=== PATIENT | female | born 1995 | race Caucasian/White ===

== ENCOUNTER 2017-07-27 14:31 | Outpatient (CLI) | payer OTHER | END 2017-07-27 17:14 | disposition home or self-care (01) | LOC: OBT 14:31 → L-D 14:31 → OBT 17:14 | DX: O62.9 Abnormality of forces of labor, unspecified (principal); Z3A.37 37 weeks gestation of pregnancy; O26.893 Other specified pregnancy related conditions, third trimester; R06.02 Shortness of breath | CPT/HCPCS: 76818 ==

== ENCOUNTER 2017-07-28 16:01 | Outpatient (CLI) | payer OTHER | END 2017-07-28 19:43 | disposition home or self-care (01) | LOC: OBT 16:01 → L-D 16:03 → OBT 19:43 | DX: O41.03X0 Oligohydramnios, third trimester, not applicable or unspecified (principal); Z3A.37 37 weeks gestation of pregnancy | CPT/HCPCS: 76815; 76818 ==

== ENCOUNTER 2017-07-30 14:40 | Outpatient (CLI) | payer OTHER | END 2017-07-30 16:00 | disposition home or self-care (01) | LOC: OBT 14:40 → L-D 14:41 → OBT 16:00 | DX: O41.03X0 Oligohydramnios, third trimester, not applicable or unspecified (principal); Z3A.38 38 weeks gestation of pregnancy | CPT/HCPCS: 76818 ==

== ENCOUNTER 2017-08-02 02:22 | Inpatient (IN) | payer OTHER ==
[2017-08-02] MEDS ORDERED: OXYTOCIN 30 UNITS/LR 500 ML IV ×2 (05:00)
[2017-08-02] MEDS ORDERED: OXYCODONE/ASPIRIN (4.88/325) TAB PO (05:00)
[2017-08-02] MEDS ORDERED: IBUPROFEN 600 MG TAB PO (05:00)
[2017-08-02] MEDS ORDERED: METHYLERGONOVINE 0.2 MG INJ IM (05:00)
[2017-08-02] MEDS ORDERED: MISOPROSTOL 200 MCG TAB PR (05:00)
[2017-08-02] MEDS ORDERED: BUTORPHANOL 2 MG INJ IV (05:00)
[2017-08-02] MEDS ORDERED: CARBOPROST 250 MCG INJ IM (05:00)
[2017-08-02] MEDS ORDERED: LIDOCAINE 1% (MPF) 30 ML INJ INJ (05:00)
[2017-08-02] MEDS ORDERED: ALBUTEROL HFA 8 GM INHALER INH (05:30)
[2017-08-02 05:31] LABS: ADD MAN DIFF? NO
[2017-08-02 05:43] LABS: ABNORMAL IP MESSAGE 1; BASOPHILS % 0.3 % (0.0-2.0); EOSINOPHILS # 0.2 10^3/ul (0.0-0.5); EOSINOPHILS % 1.5 % (0.0-7.0); HEMATOCRIT 37.1 % (37.0-47.0); HEMOGLOBIN 12.3 g/dl (12.0-16.0); LYMPHOCYTES # 1.7 10^3/ul (0.8-2.9); LYMPHOCYTES % 15.7 % (15.0-51.0); MEAN CORPUSCULAR HEMOGLOBIN 28.7 pg (29.0-33.0); MEAN CORPUSCULAR HGB CONC 33.2 g/dl (32.0-37.0); MEAN CORPUSCULAR VOLUME 86.7 fl (82.0-101.0); MEAN PLATELET VOLUME 13.1 fl (7.4-10.4); MONOCYTE # 0.6 10^3/ul (0.3-0.9); MONOCYTES % 5.5 % (0.0-11.0); NEUTROPHIL # 8.4 10^3/ul (1.6-7.5); NEUTROPHILS % 76.5 % (39.0-77.0); PLATELET COUNT 176 10^3/UL (140-415); RED BLOOD COUNT 4.28 10^6/ul (4.20-5.40); RED CELL DISTRIBUTION WIDTH 14.1 % (11.5-14.5)
[2017-08-02 05:57] LABS: POSITIVE DIFF @See below
[2017-08-02 06:03] LABS: INR 0.93; PROTIME 12.5 Sec (11.9-14.9)
[2017-08-02 06:04] LABS: PARTIAL THROMBOPLASTIN TIME 26.2 Sec (25.0-35.0)
[2017-08-02 06:29] LABS: AMPHETAMINE/METHAMPHETAMINE Negative (NEGATIVE); BARBITURATES Negative (NEGATIVE); BENZODIAZEPINES Negative (NEGATIVE); CANNABINOIDS Positive (NEGATIVE); COCAINE Negative (NEGATIVE); OPIATES Negative (NEGATIVE)
[2017-08-02] MEDS: LACTATED RINGER'S 1,000 ML IV ×4 (06:38→19:33)
[2017-08-02 07:56] LABS: RUPTURE FETAL MEMBRANES NEGATIVE (NEGATIVE)
[2017-08-02] MEDS: OXYTOCIN 30 UNITS/LR 500 ML IV (11:19)
[2017-08-02 15:26] LABS: RAPID PLASMA REAGIN NONREACTIVE (NR)
[2017-08-02] MEDS ORDERED: FENTAnyl 2MCG/ML-ROPIV 0.2% 100 ML (16:30)
[2017-08-02] MEDS ORDERED: DIPHENHYDRAMINE 50 MG INJ IV (22:30)
[2017-08-02] MEDS ORDERED: NALOXONE (0.4 MG/ML) INJ IV (22:30)
[2017-08-02] MEDS ORDERED: ONDANSETRON 4 MG INJ IV (22:30)
[2017-08-02] MEDS: FENTAnyl 2MCG/ML-ROPIV 0.2% 100 ML BAG EPI (22:47)
[2017-08-03] MEDS: LACTATED RINGER'S 1,000 ML IV ×2 (01:56→03:53)
[2017-08-03] MEDS: FENTAnyl 2MCG/ML-ROPIV 0.2% 100 ML BAG EPI (05:37)
[2017-08-03] MEDS: AMPICILLIN 2 GM/NS (PMX) 100 ML IV (07:59)
[2017-08-03 11:39] LABS: CBV Base Excess -2.4 mmol/L; CBV COHb 0 %; CBV Oxygen Sat 40.3 mmHG; CBV Total Hemglobin 16.9 g/dl; Cord Blood Venous AADO2 70.7 mmHg; Cord Blood Venous pO2 20.7 mmHG (15.0-45.0); Fraction OxyHgb Cord Venous 39.5 %; MODE ROOM AIR; MetHgb Cord Venous 1.9 %; Sample Type CBV; Site CORD
[2017-08-03] MEDS: OXYTOCIN 30 UNITS/LR 500 ML IV (11:45)
[2017-08-03] MEDS: AMPICILLIN 1 GM/NS (PMX) 50 ML IV (12:00)
[2017-08-03] MEDS ORDERED: CLINDAMYCIN 900 MG/D5W (PMX) 50 ML IVPB (12:49)
[2017-08-03] MEDS: ACETAMINOPHEN 325 MG TAB PO (13:03)
[2017-08-03] MEDS: CLINDAMYCIN 900 MG/D5W (PMX) 50 ML IVPB ×2 (13:11→21:54)
[2017-08-03 13:39] LABS: ADD UMIC YES; UR ASCORBIC ACID NEGATIVE (NEGATIVE); UR BACTERIA FEW /HPF (NONE SEEN); UR BILIRUBIN (Dip) NEGATIVE (NEGATIVE); UR BLOOD (Dip) 3+ mg/dL (NEGATIVE); UR CLARITY SLIGHTLY CLOUDY (CLEAR); UR COLOR YELLOW (YELLOW); UR GLUCOSE (Dip) NEGATIVE (NEGATIVE); UR KETONES (Dip) 2+ mg/dL (NEGATIVE); UR LEUKOCYTE ESTERASE (Dip) TRACE Leu/ul (NEGATIVE); UR MUCUS FEW /HPF (NONE SEEN); UR NITRITE (Dip) NEGATIVE (NEGATIVE); UR RBC > 182 /HPF (0-5); UR TOTAL PROTEIN (Dip) 2+ mg/dl (NEGATIVE); UR UROBILINOGEN (Dip) 1+ mg/dL (NEGATIVE); UR WBC 21 /HPF (0-5)
[2017-08-03] MEDS: GENTAMICIN IN NACL, ISO-OSM 50 ML IVPB (14:14)
[2017-08-03] MEDS: LACTATED RINGER'S 1,000 ML IV* ×2 (14:45→21:54)
[2017-08-03] MEDS ORDERED: METHYLERGONOVINE 0.2 MG INJ IM (15:00)
[2017-08-03] MEDS ORDERED: DIPHENHYDRAMINE 25 MG CAP PO (15:00)
[2017-08-03] MEDS ORDERED: CARBOPROST 250 MCG INJ IM (15:00)
[2017-08-03] MEDS ORDERED: OXYTOCIN 30 UNITS/LR 500 ML IV (15:00)
[2017-08-03] MEDS ORDERED: ONDANSETRON 4 MG INJ IV (15:00)
[2017-08-03] MEDS ORDERED: MAGNESIUM HYDROXIDE 30ML CUP PO (15:00)
[2017-08-03] MEDS ORDERED: NA PHOSPHATE/BIPHOS 133 ML ENEMA PR (15:00)
[2017-08-03] MEDS ORDERED: HYDROCODONE/APAP (5/325) TAB PO (15:00)
[2017-08-03] MEDS ORDERED: MISOPROSTOL 200 MCG TAB PR (15:00)
[2017-08-03] MEDS ORDERED: ACETAMINOPHEN 325 MG TAB PO ×2 (15:00)
[2017-08-03] MEDS ORDERED: ZOLPIDEM 5 MG TAB PO (15:00)
[2017-08-03] MEDS: IBUPROFEN 600 MG TAB PO ×2 (17:37→23:41)
[2017-08-03] MEDS: BENZOCAINE 20% 56 ML SPRAY TOP (17:37)
[2017-08-03] MEDS: LANOLIN 7 GM TUBE TOP (17:38)
[2017-08-03] MEDS: WITCH HAZEL/GLYCERIN PAD PR (17:38)
[2017-08-03] MEDS: SENNA/DOCUSATE NA (8.6MG/50MG) TAB PO (21:54)
[2017-08-03] MEDS: GENTAMICIN 100 MG in SOD CHLORIDE 0.9% 50 ML IVPB (23:03)
[2017-08-04] MEDS: IBUPROFEN 600 MG TAB PO ×4 (05:32→23:38)
[2017-08-04] MEDS: CLINDAMYCIN 900 MG/D5W (PMX) 50 ML IVPB (05:33)
[2017-08-04] MEDS: GENTAMICIN 100 MG in SOD CHLORIDE 0.9% 50 ML IVPB (08:00)
[2017-08-04] MEDS: LACTATED RINGER'S 1,000 ML IV* (08:00)
[2017-08-04] MEDS: SENNA/DOCUSATE NA (8.6MG/50MG) TAB PO ×2 (08:03→21:30)
[2017-08-04 09:48] LABS: ADD MAN DIFF? NO
[2017-08-04 10:00] LABS: BASOPHILS % 0.3 % (0.0-2.0); EOSINOPHILS # 0.3 10^3/ul (0.0-0.5); EOSINOPHILS % 2.6 % (0.0-7.0); HEMATOCRIT 33.7 % (37.0-47.0); HEMOGLOBIN 11.3 g/dl (12.0-16.0); LYMPHOCYTES # 1.9 10^3/ul (0.8-2.9); LYMPHOCYTES % 20.1 % (15.0-51.0); MEAN CORPUSCULAR HGB CONC 33.5 g/dl (32.0-37.0); MEAN CORPUSCULAR VOLUME 86.4 fl (82.0-101.0); MONOCYTE # 0.5 10^3/ul (0.3-0.9); MONOCYTES % 5.7 % (0.0-11.0); NEUTROPHIL # 6.8 10^3/ul (1.6-7.5); NEUTROPHILS % 70.9 % (39.0-77.0); PLATELET COUNT 162 10^3/UL (140-415); RED CELL DISTRIBUTION WIDTH 14.6 % (11.5-14.5)
[2017-08-04 10:00] LABS: WHITE BLOOD COUNT 9.5 10^3/ul (4.8-10.8)
[2017-08-04] MEDS: CEPHALEXIN 500 MG CAP PO ×2 (13:46→21:30)
[2017-08-05] MEDS: CEPHALEXIN 500 MG CAP PO (06:20)
[2017-08-05] MEDS: IBUPROFEN 600 MG TAB PO ×2 (06:20→12:34)
[2017-08-05] MEDS ORDERED: VARICELLA VACCINE LIVE/PF 1,350 UNIT/0.5 ML ML SC* (09:00)
[2017-08-05] MEDS: MEASLES,MUMPS,RUBELLA VACCINE INJ SC* (09:10)
[2017-08-05] MEDS: SENNA/DOCUSATE NA (8.6MG/50MG) TAB PO (09:11)
[2017-08-05 09:23] LABS: ADD MAN DIFF? NO
[2017-08-05 09:28] LABS: BASOPHILS % 0.3 % (0.0-2.0); EOSINOPHILS # 0.3 10^3/ul (0.0-0.5); EOSINOPHILS % 3.6 % (0.0-7.0); HEMATOCRIT 32.5 % (37.0-47.0); HEMOGLOBIN 10.9 g/dl (12.0-16.0); LYMPHOCYTES # 1.7 10^3/ul (0.8-2.9); LYMPHOCYTES % 23.5 % (15.0-51.0); MEAN CORPUSCULAR HEMOGLOBIN 28.8 pg (29.0-33.0); MEAN CORPUSCULAR HGB CONC 33.5 g/dl (32.0-37.0); MEAN PLATELET VOLUME 12.5 fl (7.4-10.4); MONOCYTE # 0.4 10^3/ul (0.3-0.9); MONOCYTES % 5.4 % (0.0-11.0); NEUTROPHIL # 4.7 10^3/ul (1.6-7.5); NEUTROPHILS % 66.5 % (39.0-77.0); PLATELET COUNT 172 10^3/UL (140-415); RED BLOOD COUNT 3.78 10^6/ul (4.20-5.40); RED CELL DISTRIBUTION WIDTH 14.6 % (11.5-14.5)
[2017-08-05] MEDS: DIPHTH/TET/ACEL PERTUSS (ADULT) 0.5 ML VIAL IM* (12:36)
== END 2017-08-05 16:00 | disposition home or self-care (01) | DRG 766 ==
LOC: OBT 02:22 → L-D 02:23 → PP1 08-03 14:16 → OBT 05:14 → L-D 05:15
PROVIDERS: Obstetrics & Gynecology
PROC: 10D00Z1 Extraction of Products of Conception, Low, Open Approach (ICD-10-PCS; principal; 2017-08-04)
PROC: 3E033VJ Introduction of Other Hormone into Peripheral Vein, Percutaneous Approach (ICD-10-PCS; 2017-08-04)
DX: O41.03X0 Oligohydramnios, third trimester, not applicable or unspecified (principal); E66.01 Morbid (severe) obesity due to excess calories; O99.214 Obesity complicating childbirth; Z68.34 Body mass index [BMI] 34.0-34.9, adult; Z3A.38 38 weeks gestation of pregnancy; Z37.0 Single live birth
CPT/HCPCS: 36415; 62319; 76815; 76816; 80307; 81001; 82803; 84112; 85025; 85610; 85730; 86592; 86850; 86900; 86901; 87040; 87070; 87086; 88307; 90715; 90716; 99464